=== PATIENT | female | born 1970 | race Caucasian/White ===

== ENCOUNTER 2022-08-21 14:20 | Emergency (ER) | payer MEDICAID, MEDICARE ==
[~2022-08-21] VITALS: Ht 175.3 cm; Wt 63.0 kg
[~2022-08-21 14:20] MED LIST: PHEN-716 PO
[2022-08-21 14:27] VITALS: BP 139/88
[2022-08-21] MEDS ORDERED: MUPI22OI30 TOP (16:11)
[2022-08-21] MEDS ORDERED: IVER3TAB2 PO (16:11)
== END 2022-08-21 16:38 | disposition home or self-care (01) ==
LOC: ER 14:21
DX: S01.00XA Unspecified open wound of scalp, initial encounter (principal); K08.89 Other specified disorders of teeth and supporting structures; F15.90 Other stimulant use, unspecified, uncomplicated; Z56.0 Unemployment, unspecified; Z72.89 Other problems related to lifestyle; Z79.899 Other long term (current) drug therapy; Z72.0 Tobacco use; X58.XXXA Exposure to other specified factors, initial encounter; Y93.89 Activity, other specified; Y92.89 Other specified places as the place of occurrence of the external cause; Y99.8 Other external cause status
CPT/HCPCS: 99283

== ENCOUNTER 2022-12-05 20:20 | Emergency (ER) | payer MEDICARE, MEDICAID ==
[~2022-12-05] VITALS: Ht 175.3 cm; Wt 64.5 kg
[~2022-12-05 20:20] MED LIST changes: +IVER3TAB2 PO
[2022-12-05 20:46] VITALS: BP 126/90; PULSE 103; RESP 18; O2SAT 97
[2022-12-06] MEDS ORDERED: PERM60CR19 TP (03:45)
== END 2022-12-06 03:56 | disposition home or self-care (01) ==
LOC: ER 20:21
DX: L65.8 Other specified nonscarring hair loss (principal); F15.10 Other stimulant abuse, uncomplicated; Z79.899 Other long term (current) drug therapy
CPT/HCPCS: 99282; 99283

== ENCOUNTER → 2023-02-05 | Emergency (ER) | payer MEDICARE, MEDICAID ==
[~2023-02-05] VITALS: Ht 175.3 cm; Wt 62.2 kg
[~2023-02-05] MED LIST changes: +PERM60CR19 TP; +TRIA15CR61 TP
[2023-02-05 10:29] VITALS: TEMP 98
[2023-02-05 11:33] VITALS: BP 124/74; PULSE 86; RESP 17; O2SAT 98
== END | disposition home or self-care (01) ==
LOC: ER 10:23
DX: L28.0 Lichen simplex chronicus (principal)
CPT/HCPCS: 99283

== ENCOUNTER 2023-08-01 20:44 | Emergency (ER) | payer BC, MEDICAID ==
[~2023-08-01] VITALS: Ht 175.3 cm; Wt 63.0 kg
[~2023-08-01 20:44] MED LIST changes: -TRIA15CR61 TP
[2023-08-01 21:04] VITALS: BP 127/82; PULSE 88; RESP 16; TEMP 98.7; O2SAT 98
[2023-08-01] MEDS ORDERED: DIF150T PO (21:41)
== END 2023-08-01 22:21 | disposition home or self-care (01) ==
LOC: ER 20:44
DX: S00.00XA Unspecified superficial injury of scalp, initial encounter (principal); F15.90 Other stimulant use, unspecified, uncomplicated; Z79.899 Other long term (current) drug therapy; Z56.0 Unemployment, unspecified; X58.XXXA Exposure to other specified factors, initial encounter; Y93.89 Activity, other specified; Y92.89 Other specified places as the place of occurrence of the external cause; Y99.8 Other external cause status; Z72.89 Other problems related to lifestyle
CPT/HCPCS: 99283

== ENCOUNTER 2024-07-07 21:54 | Emergency (ER) | payer BC, MEDICAID ==
[~2024-07-07] VITALS: Ht 175.3 cm; Wt 64.5 kg
[~2024-07-07 21:54] MED LIST changes: -PERM60CR19 TP; +PERM60CR27 TP
[2024-07-07 22:07] VITALS: BP 132/74; PULSE 78; RESP 8; TEMP 98.1; O2SAT 98
--- NOTE | 2024-07-07 23:51 | Physician Documentation ---
History of Present Illness ~ Chief Complaint: STD Stated Complaint: STD Time Seen by MD: 22:54 Primary Medical Doctor: Art RODRIGUEZ Patient is seen today with a very vague complaints and patient is not a very good historian. 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 Patient has a very difficult store to follow about [facility] and [facility] and they tested for syphilis but states that she did get one shot but she is not sure what it was and is not sure if she received any further shots or injections. Patient states she had vaginal discharge back in 2017 but currently denies any vaginal discharge or itching and denies any current fevers or chills. The patient's main complaints today is her hair loss. She has no new or other concern or complaint at this time. Medication Reconciliation Allergies: Coded Allergies: No Known Allergies (Unverified , 07/07/24) Scheduled Ivermectin (Ivermectin), 5 TAB PO ONCE Permethrin 5% Cream* (Elimite 5% Cream*), 1 APPLIC TP ONCE Phenazopyridine HCl (Pyridium), 1 TAB PO Q8H Past Medical History Past Medical History: No Pertinent History Past Surgical History: noncontributory Alcohol Use: Occasionally Drug Use: methamphetamine Lives In: Home Occupation: unemployed Review of Systems Constitutional: Denies: chills, fever, weakness Eyes: Denies: pain, blurred vision ENT: Denies: ear pain, nose pain, throat pain, mouth pain Respiratory: Denies: cough, shortness of breath Cardiovascular: Denies: chest pain, palpitations Gastrointestinal: Denies: abdominal pain, nausea, vomiting Genitourinary: Denies: burning, dysuria Female Genitalia: Denies: vaginal discharge, pelvic pain Neurological: Denies: headache, dizziness Musculoskeletal: Denies: pain, swelling Integumentary: Denies: rash, lesions Allergic/Immunologic: Denies: hives, itching Hematologic/Lymphatic: Denies: no symptoms reported Psychiatric: Denies: depression, anxiety Physical Exam Vital Signs: Temperature: 98.1, Heart Rate: 78, Respiratory Rate: 8, BP: 132/74, Pulse Oximetry: 98, Weight: 64.550 Physical Exam General: Awake and Alert, no acute distress. HEENT: Conjunctiva pink, Sclera clear, Mucus Membranes moist. Neck: Supple without masses and tenderness. Resp: Unlabored. Lungs clear to auscultation bilaterally. Heart: Regular Rate and rhythm, normal S1 and S2 without murmur, rub or gallop. Genitourinary: Patient declined evaluation at this time. Abdomen: Soft and non tender no organomegaly Extremities: No cyanosis,clubbing or edema. Skin: Warm and Dry. Progress Results/Orders Results/Orders Vital Signs 07/07/24 22:07 Temp 98.1 Pulse 78 Resp 8 B/P (MAP) 132/74 Pulse Ox 98 Medical Decision Making Findings Patient is seen today with a very vague complaints and patient is not a very good historian. 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 Patient has a very difficult store to follow about [facility] and they tested for syphilis but states that she did get one shot but she is not sure what it was and is not sure if she received any further shots or injections. Patient states she had vaginal discharge back in 2017 but currently denies any vaginal discharge or itching and denies any current fevers or chills. The patient's main complaints today is her hair loss. She has no new or other concern or complaint at this time. I did discuss with the patient her symptoms and shared decision-making utilized today. Patient agreed to get a primary care provider with [facility] and[facility] and evaluation for syphilis or possible syphilis. Patient will return to ED with any worsening, concerning or changing symptoms. Departure Disposition: HOME / SELF CARE / HOMELESS Impression: Primary Impression: Sexually transmitted disease Condition: Stable Discharge Instructions: Sexually Transmitted Disease Additional Instructions: I did discuss with the patient her symptoms and shared decision-making utilized today. Patient agreed to get a primary care provider with [facility] and[facility] and evaluation for syphilis or possible syphilis. Patient will return to ED with any worsening, concerning or changing symptoms. Referrals: NO PRIMARY CARE PROVIDER (PCP) Signature Scribe Signature: No scribe Attestation: No scribe JAVIER CASON PAC July 07, 2024 23:51
== END 2024-07-08 00:17 | disposition home or self-care (01) ==
LOC: ER 21:55
DX: A64 Unspecified sexually transmitted disease (principal)
CPT/HCPCS: 99281